=== PATIENT | male | born 1965 | race Caucasian/White ===

== ENCOUNTER → 2019-02-17 | Outpatient (CLI) | payer MEDICARE | END | disposition home or self-care (01) | LOC: CFH 08:14 | PROVIDERS: ATTEND Nurse Practitioner Primary Care | DX: K59.00 Constipation, unspecified (principal); R63.4 Abnormal weight loss | CPT/HCPCS: 74177 ==

== ENCOUNTER 2019-04-01 08:25 | Outpatient (CLI) | payer MEDICARE | END 2019-04-01 23:59 | disposition home or self-care (01) | LOC: CFH 08:25 | PROVIDERS: ATTEND Internal Medicine Cardiovascular Disease | DX: R07.89 Other chest pain (principal); R00.2 Palpitations | CPT/HCPCS: 0399T; 93306 ==

== ENCOUNTER → 2020-03-29 | Outpatient (CLI) | payer MEDICARE | END | disposition home or self-care (01) | LOC: RAD 09:19 | PROVIDERS: ATTEND Physician Assistant | DX: M51.16 Intervertebral disc disorders with radiculopathy, lumbar region (principal); M48.061 Spinal stenosis, lumbar region without neurogenic claudication | CPT/HCPCS: 72148 ==